=== PATIENT | male | born 1960 | race Caucasian/White ===

== ENCOUNTER 2017-11-18 15:16 | Emergency (ER) | payer MEDICAID ==
[~2017-11-18] VITALS: Ht 162.6 cm; Wt 67.6 kg
[2017-11-18 15:34] VITALS: Ht 162.6 cm; Wt 67.6 kg
[2017-11-18 16:28] VITALS: BP 126/75
== END 2017-11-18 16:28 | disposition home or self-care (01) ==
LOC: ED 15:16
DX: M25.562 Pain in left knee (principal); M25.561 Pain in right knee
CPT/HCPCS: J1885